=== PATIENT | male | born 1955 | race Caucasian/White ===

== ENCOUNTER 2016-10-01 14:30 | Inpatient (IN) | payer MEDICARE ==
[2016-10-01] MEDS ORDERED: Sodium Chloride 0.9% 1000 ML 1,000 ML IV STA ×2 (14:51→16:24)
[2016-10-01] MEDS ORDERED: FEVERALL 650 MG PR STA (14:52)
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
[2016-10-01] MEDS ORDERED: FEVERALL 650 MG ONE ×2 (15:21→15:25)
[2016-10-01] MEDS ORDERED: Sodium Chloride 0.9% 1000 ML 1,000 ML ONE ×2 (15:22→16:41)
[2016-10-01 15:29] LABS: BASOPHIL % 0.4 % (0.0-0.4); Eosinophil % 0.1 % (0.00-5.0); Granulocytes % 84.7 % (36.0-66.0); Lymphocytes % 9.4 % (24.0-44.0); Mean Cell Volume 88.6 fl (78-100); Mean Corpuscular Hemoglobin 28.9 pg (26-32); Mean Platelet Volume 10.5 fl (6-9.5); Monocytes % 5.4 % (0.0-12.0); Platelet Count 259 K/mm3 (150-450); Red Blood Count 4.39 M/mm3 (4.1-5.6); Red Cell Distribution Width 14.1 % (11.5-14.0); White Blood Count 10.7 K/mm3 (4.0-10.5)
[2016-10-01 15:54] LABS: ALBUMIN 3.3 g/dL (3.4-5.0); ALKALINE PHOSPHATASE 87 U/L (46-116); ANION GAP 14.2 MEQ/L (5-15); BILIRUBIN,TOTAL 0.6 mg/dL (0.2-1.0); BLOOD UREA NITROGEN 9 mg/dL (9-20); CHLORIDE 95 mEq/L (98-107); Carbon Dioxide 28.2 mEq/L (21-32); Glucose 189 MG/DL (70-110); SGOT/AST 31 U/L (15-37); SGPT/ALT 87 U/L (12-78); SODIUM 133 mEq/L (136-145); Total Protein 7.7 gm/dL (6.4-8.2)
[2016-10-01] MEDS ORDERED: Zosyn 3.375GM/100 Ml D5W 100 ML IV ONE ×2 (15:58→16:41)
[2016-10-01 16:32] LABS: COMPLETE URINE MICROSCOPIC? YES; Collection Type CATH; Epithelial Cells FEW /HPF (FEW); Ph 5.5 (5-6); WBC 25-50 /HPF (0-5)
[2016-10-01 16:33] LABS: Bacteria MODERATE /HPF (NEGATIVE)
[2016-10-01] MEDS ORDERED: Protonix 40MG Tablet PO SCH (18:00)
[2016-10-01] MEDS: Sodium Chloride 0.9% W/ 20 mEq KCl/LITER 1,000 ML IV SCH (18:33)
[2016-10-01] MEDS: TYLENOL 325 MG PO PRN (19:33)
[2016-10-01] MEDS: Cardizem CD 180 MG PO SCH (21:24)
[2016-10-01] MEDS: Pepcid 20 MG VIAL IV SCH (21:24)
[2016-10-01] MEDS ORDERED: MOTRIN 600 MG PO PRN (21:44)
[2016-10-01] MEDS: Zosyn 3.375GM/100 Ml D5W 100 ML IV SCH (23:16)
[2016-10-02] MEDS: TYLENOL 325 MG PO PRN (04:44)
[2016-10-02] MEDS: Sodium Chloride 0.9% W/ 20 mEq KCl/LITER 1,000 ML IV SCH ×2 (04:45→17:07)
[2016-10-02] MEDS: Zosyn 3.375GM/100 Ml D5W 100 ML IV SCH ×4 (05:34→23:31)
[2016-10-02 05:55] LABS: ALBUMIN 3.3 g/dL (3.4-5.0); ALKALINE PHOSPHATASE 88 U/L (46-116); ANION GAP 18.8 MEQ/L (5-15); BILIRUBIN,TOTAL 0.6 mg/dL (0.2-1.0); BLOOD UREA NITROGEN 10 mg/dL (9-20); CHLORIDE 99 mEq/L (98-107); Carbon Dioxide 25.5 mEq/L (21-32); Glucose 178 MG/DL (70-110); Potassium 4.4 mEq/L (3.5-5.1); SGOT/AST 38 U/L (15-37); SGPT/ALT 83 U/L (12-78); SODIUM 139 mEq/L (136-145); Total Protein 7.3 gm/dL (6.4-8.2)
[2016-10-02 05:57] LABS: BASOPHIL % 0.2 % (0.0-0.4); Eosinophil % 0.5 % (0.00-5.0); Lymphocytes % 18.5 % (24.0-44.0); Mean Cell Volume 90.4 fl (78-100); Mean Corpuscular Hemoglobin 29.1 pg (26-32); Mean Platelet Volume 10.8 fl (6-9.5); Monocytes % 6.8 % (0.0-12.0); Platelet Count 243 K/mm3 (150-450); Red Cell Distribution Width 14.5 % (11.5-14.0); White Blood Count 8.5 K/mm3 (4.0-10.5)
[2016-10-02] MEDS ORDERED: MOTRIN 600 MG PO PRN (06:26)
[2016-10-02] MEDS ORDERED: Lomotil PO PRN (07:23)
[2016-10-02] MEDS: THERAGRAN MULTIVITAMIN PO SCH (08:59)
[2016-10-02] MEDS: LIORESAL 10 MG PO SCH ×4 (08:59→21:25)
[2016-10-02] MEDS: Pepcid 20 MG VIAL IV SCH ×2 (08:59→21:25)
[2016-10-02] MEDS: ECOTRIN 81 MG PO SCH (08:59)
[2016-10-02] MEDS ORDERED: NON-FORMULARY ITEM (Multivitamin [Multivitamins] 1 TAB) PO SCH (10:00)
[2016-10-02] MEDS ORDERED: NON-FORMULARY ITEM (Baclofen [Baclofen] 20 MG) PO SCH (10:00)
[2016-10-02] MEDS ORDERED: BABY ASPIRIN 81 MG CHEW PO SCH (10:00)
[2016-10-02] MEDS ORDERED: Protonix 40MG Tablet PO SCH (18:00)
[2016-10-02] MEDS: Cardizem CD 180 MG PO SCH (21:25)
[2016-10-03] MEDS: TYLENOL 325 MG PO PRN (03:16)
[2016-10-03] MEDS: Zosyn 3.375GM/100 Ml D5W 100 ML IV SCH (05:38)
[2016-10-03 05:52] LABS: BASOPHIL % 0.6 % (0.0-0.4); Eosinophil % 1.2 % (0.00-5.0); Granulocytes % 58.6 % (36.0-66.0); Lymphocytes % 27.1 % (24.0-44.0); Mean Cell Volume 89.4 fl (78-100); Mean Platelet Volume 10.4 fl (6-9.5); Monocytes % 12.5 % (0.0-12.0); Platelet Count 254 K/mm3 (150-450); Red Blood Count 4.16 M/mm3 (4.1-5.6); Red Cell Distribution Width 14.2 % (11.5-14.0); White Blood Count 6.5 K/mm3 (4.0-10.5)
[2016-10-03 06:12] LABS: ALKALINE PHOSPHATASE 73 U/L (46-116); ANION GAP 12.3 MEQ/L (5-15); BILIRUBIN,TOTAL 0.3 mg/dL (0.2-1.0); BLOOD UREA NITROGEN 5 mg/dL (9-20); CHLORIDE 102 mEq/L (98-107); Carbon Dioxide 26.6 mEq/L (21-32); Glucose 199 MG/DL (70-110); Potassium 3.8 mEq/L (3.5-5.1); SGOT/AST 39 U/L (15-37); SGPT/ALT 69 U/L (12-78); SODIUM 137 mEq/L (136-145); Total Protein 7.5 gm/dL (6.4-8.2)
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
[2016-10-03] MEDS ORDERED: Invanz 1 GM*** 1 G in Sodium Chloride 100ML MINI-BAG PLUS 100 ML IV SCH (10:00)
[2016-10-03] MEDS: LIORESAL 10 MG PO SCH (10:20)
[2016-10-03] MEDS: ECOTRIN 81 MG PO SCH (10:20)
[2016-10-03] MEDS: Pepcid 20 MG VIAL IV SCH (10:20)
[2016-10-03] MEDS: THERAGRAN MULTIVITAMIN PO SCH (10:20)
[2016-10-03 12:17] VITALS: BP 160/81; PULSE 68; O2SAT 96
== END 2016-10-03 13:00 | disposition home or self-care (01) | DRG 690 ==
LOC: ED 14:30 → MED SURG 17:18
PROVIDERS: ADMIT Family Medicine; ATTEND Family Medicine
DX: N12 Tubulo-interstitial nephritis, not specified as acute or chronic (principal); G82.20 Paraplegia, unspecified; G47.30 Sleep apnea, unspecified
CPT/HCPCS: 36000; 36415; 51702; 71010; 80053; 81000; 83605; 85025; 87040; 87070; 87077; 87086; 87186; 87430; 87631; 93005; 94660; 94760; 96360; 96365; 99285; J1335; J2543; P9612; A9270-GY